=== PATIENT | female | born 1965 | race Caucasian/White ===

== ENCOUNTER 2021-01-28 09:41 | Outpatient (REF) | payer OTHER, SELFPAY ==
[2021-01-28 10:24] LABS: MANUAL DIFF FLAG NO
[2021-01-28 10:43] LABS: Basophils Absolute Auto 0.1 X10*3/uL (0.0-0.2); Basophils Percent Auto 1.2 % (0-2); Eosinophils Absolute Auto 0.2 X10*3/uL (0.0-0.4); Eosinophils Percent Auto 3.9 % (0-4); Hematocrit 38.1 % (37-47); Hemoglobin 12.9 g/dl (12.0-16.0); Imm Gran Abs Auto 0.01 X10*3/uL (0.00-0.03); Imm Gran Pct Auto 0.2 % (0.0-0.4); Lymphocytes Absolute Auto 1.9 X10*3/uL (1.2-4.9); Mean Corpuscular HGB Conc 33.9 g/dl (31.0-35.0); Mean Corpuscular Hemoglobin 30.9 pg (27.0-33.0); Mean Corpuscular Volume 91.4 fL (80-98); Mean Platelet Volume 9.6 fL (9.4-12.3); Monocytes Absolute Auto 0.4 X10*3/uL (0.1-1.2); Monocytes Percent Auto 7.3 % (2-11); Neutrophils Absolute Auto 2.6 X10*3/uL (2.0-8.3); Neutrophils Percent Auto 50.4 % (45-73); Platelet Count 281 X10*3/uL (160-400); Red Blood Count 4.17 X10*6/uL (4.20-5.50); Red Cell Distribution Width 12.4 % (11.0-16.0); White Blood Count 5.2 X10*3/uL (4.8-10.8)
[2021-01-28 11:01] LABS: Glucose Urine UA NEG (NEG); Leukocyte Esterase Urine NEG (NEG); Nitrite Urine NEG (NEG); Urine Blood TRACE (NEG); Urine Ketones NEG (NEG); Urine Protein NEG (NEG-TRACE)
[2021-01-28 11:07] LABS: Appearance Urine CLEAR; Color Urine STRAW
[2021-01-28 11:26] LABS: RBC Urine 0-2 /HPF (0); Squamous Epithelial Cell Urine TRACE /LPF; WBC Urine 0 /HPF (0-4)
[2021-01-28 11:27] LABS: Alanine Aminotransferase 14 U/L (0-31); Albumin Level 4.4 g/dL (3.5-5.0); Alkaline Phosphatase 72 U/L (39-117); Anion Gap 13 (12-20); Aspartate Amino Transferase 19 U/L (5-31); Bilirubin Total 0.5 mg/dL (0.0-1.0); Blood Urea Nitrogen 13 mg/dL (9-16); Calcium 9.5 mg/dL (8.4-10.2); Carbon Dioxide 26 mmol/L (22-29); Chloride 104 mmol/L (96-108); Cholesterol 206 mg/dL; Estimated Glomerular Filt Rate > 60; Glucose Fasting 86 mg/dL (60-99); HDL Cholesterol 56 mg/dL; LDL Cholesterol Calculated 140 mg/dl; Potassium 4.3 mmol/L (3.3-5.1); Sodium 139 mmol/L (135-145); Total Protein 6.6 g/dL (6.5-8.0); Triglycerides 50 mg/dL
[2021-01-28 11:39] LABS: TSH reflex Free T4 1.41 uIU/mL (0.32-4.0)
== END 2021-01-28 09:42 | disposition home or self-care (01) ==
LOC: HO.LNP 09:41
PROVIDERS: PCP Internal Medicine; Visit Provider Internal Medicine
DX: Z00.00 Encounter for general adult medical examination without abnormal findings (principal); R31.1 Benign essential microscopic hematuria; E04.1 Nontoxic single thyroid nodule
CPT/HCPCS: 80053; 80061; 81001; 81003; 84443; 85025

== ENCOUNTER 2022-02-04 11:09 | Outpatient (REF) | payer OTHER, SELFPAY ==
[2022-02-04 11:14] LABS: MANUAL DIFF FLAG NO
[2022-02-04 11:31] LABS: Appearance Urine CLEAR; Color Urine YELLOW; Glucose Urine UA NEG (NEG); Leukocyte Esterase Urine TRACE (NEG); Nitrite Urine NEG (NEG); PH 5.5 (5.0-8.0); Urine Blood NEG (NEG); Urine Ketones NEG (NEG); Urine Protein NEG (NEG-TRACE)
[2022-02-04 11:32] LABS: Basophils Absolute Auto 0.1 X10*3/uL (0.0-0.2); Basophils Percent Auto 1.3 % (0-2); Eosinophils Absolute Auto 0.3 X10*3/uL (0.0-0.4); Eosinophils Percent Auto 4.4 % (0-4); Hematocrit 38.3 % (37.0-47.0); Hemoglobin 12.8 g/dl (12.0-16.0); Imm Gran Abs Auto 0.01 X10*3/uL (0.00-0.03); Imm Gran Pct Auto 0.2 % (0.0-0.4); Lymphocytes Absolute Auto 2.2 X10*3/uL (1.2-4.9); Lymphocytes Percent Auto 35.2 % (20-40); Mean Corpuscular HGB Conc 33.4 g/dl (31.0-35.0); Mean Corpuscular Hemoglobin 30.7 pg (27.0-33.0); Mean Corpuscular Volume 91.8 fL (80.0-98.0); Mean Platelet Volume 9.5 fL (9.4-12.3); Monocytes Absolute Auto 0.5 X10*3/uL (0.1-1.2); Monocytes Percent Auto 7.7 % (2-11); Neutrophils Absolute Auto 3.1 x10*3/uL (2.0-8.3); Neutrophils Percent Auto 51.2 % (45-73); Platelet Count 278 X10*3/uL (160-400); Red Blood Count 4.17 X10*6/uL (4.20-5.50); Red Cell Distribution Width 12.4 % (11.0-16.0); White Blood Count 6.1 X10*3/uL (4.8-10.8)
[2022-02-04 11:40] LABS: Alanine Aminotransferase 11 U/L (0-31); Albumin Level 4.3 g/dL (3.5-5.0); Alkaline Phosphatase 73 U/L (39-117); Anion Gap 12 (12-20); Aspartate Amino Transferase 18 U/L (5-31); Bilirubin Total 0.6 mg/dL (0.0-1.0); Blood Urea Nitrogen 17 mg/dL (9-16); Calcium 9.5 mg/dL (8.4-10.2); Carbon Dioxide 26 mmol/L (22-29); Chloride 104 mmol/L (96-108); Cholesterol 230 mg/dL; Estimated Glomerular Filt Rate > 60; Glucose Fasting 96 mg/dL (60-99); HDL Cholesterol 58 mg/dL; LDL Cholesterol Calculated 162 mg/dl; Potassium 4.3 mmol/L (3.3-5.1); Sodium 138 mmol/L (135-145); Total Protein 6.9 g/dL (6.5-8.0); Triglycerides 53 mg/dL
[2022-02-04 11:59] LABS: RBC Urine 0-2 /HPF (0); WBC Urine 0-2 /HPF (0-4)
[2022-02-04 12:00] LABS: Bacteria Urine TRACE /LPF; Squamous Epithelial Cell Urine TRACE /LPF
[2022-02-04 12:05] LABS: TSH reflex Free T4 1.57 uIU/mL (0.32-4.0)
== END 2022-02-04 11:10 | disposition home or self-care (01) ==
LOC: HO.LNP 11:09
PROVIDERS: Visit Provider Internal Medicine
DX: Z00.00 Encounter for general adult medical examination without abnormal findings (principal); E04.1 Nontoxic single thyroid nodule
CPT/HCPCS: 80053; 80061; 81001; 84443; 85025

== ENCOUNTER 2022-08-12 11:29 | Outpatient (REF) | payer OTHER, SELFPAY ==
[2022-08-12 14:03] LABS: Cholesterol 261 mg/dL; HDL Cholesterol 67 mg/dL; LDL Cholesterol Calculated 179 mg/dl; Triglycerides 78 mg/dL
[2022-08-12 15:53] LABS: Reflex LDLD? No
== END 2022-08-12 11:30 | disposition home or self-care (01) ==
LOC: HO.LNP 11:29
PROVIDERS: Visit Provider Internal Medicine
DX: E78.00 Pure hypercholesterolemia, unspecified (principal)
CPT/HCPCS: 80061

== ENCOUNTER 2023-02-07 11:07 | Outpatient (REF) | payer SELFPAY ==
[2023-02-07 11:10] LABS: MANUAL DIFF FLAG NO
[2023-02-07 11:25] LABS: Basophils Absolute Auto 0.1 X10*3/uL (0.0-0.2); Basophils Percent Auto 1.3 % (0-2); Eosinophils Absolute Auto 0.3 X10*3/uL (0.0-0.4); Eosinophils Percent Auto 3.9 % (0-4); Hematocrit 38.9 % (37.0-47.0); Imm Gran Abs Auto 0.01 X10*3/uL (0.00-0.03); Imm Gran Pct Auto 0.1 % (0.0-0.4); Lymphocytes Absolute Auto 2.1 X10*3/uL (1.2-4.9); Lymphocytes Percent Auto 31.4 % (20-40); Mean Corpuscular HGB Conc 33.4 g/dl (31.0-35.0); Mean Corpuscular Volume 92.8 fL (80.0-98.0); Mean Platelet Volume 9.9 fL (9.4-12.3); Monocytes Absolute Auto 0.5 X10*3/uL (0.1-1.2); Monocytes Percent Auto 7.6 % (2-11); Neutrophils Absolute Auto 3.7 x10*3/uL (2.0-8.3); Neutrophils Percent Auto 55.7 % (45-73); Platelet Count 267 X10*3/uL (160-400); Red Blood Count 4.19 X10*6/uL (4.20-5.50); Red Cell Distribution Width 12.4 % (11.0-16.0); White Blood Count 6.7 X10*3/uL (4.8-10.8)
[2023-02-07 11:32] LABS: Appearance Urine Clear; Color Urine Yellow; Glucose Urine UA Negative (Negative); Leukocyte Esterase Urine Small (1+) (Negative); Nitrite Urine Negative (Negative); Specific Gravity - Urine 1.025 (1.005-1.025); UMIC TRIGGER UACC YES; Urine Blood Trace (Negative); Urine Ketones Negative (Negative); Urine Protein Negative (Neg-Trace)
[2023-02-07 11:41] LABS: Alanine Aminotransferase 11 U/L (0-31); Albumin Level 4.3 g/dL (3.5-5.0); Alkaline Phosphatase 60 U/L (39-117); Anion Gap 12 (12-20); Aspartate Amino Transferase 17 U/L (5-31); Bilirubin Total 0.7 mg/dL (0.0-1.0); Blood Urea Nitrogen 17 mg/dL (9-16); Calcium 9.5 mg/dL (8.4-10.2); Carbon Dioxide 28 mmol/L (22-29); Chloride 106 mmol/L (96-108); Cholesterol 218 mg/dL; Estimated Glomerular Filt Rate > 60; Glucose Fasting 97 mg/dL (60-99); HDL Cholesterol 56 mg/dL; LDL Cholesterol Calculated 150 mg/dl; Potassium 4.3 mmol/L (3.3-5.1); Sodium 142 mmol/L (135-145); Total Protein 6.8 g/dL (6.5-8.0); Triglycerides 64 mg/dL
[2023-02-07 11:42] LABS: Bacteria Urine None Seen (None Seen); Hyaline Casts Urine 0-2 /LPF (0-2); Squamous Epithelial Cell Urine 0-2 /HPF (0-2); UACC Culture Trigger YES; WBC Urine 0-5 /HPF (0-5)
== END 2023-02-07 11:08 | disposition home or self-care (01) ==
LOC: HO.LNP 11:07
PROVIDERS: Visit Provider Internal Medicine
DX: Z00.00 Encounter for general adult medical examination without abnormal findings (principal); E04.1 Nontoxic single thyroid nodule; E78.00 Pure hypercholesterolemia, unspecified; R82.90 Unspecified abnormal findings in urine
CPT/HCPCS: 80053; 80061; 81001; 84443; 85025; 87086

== ENCOUNTER 2023-02-13 11:10 | Outpatient (REF) | payer OTHER, SELFPAY ==
[2023-02-13 11:47] LABS: Appearance Urine Clear; Color Urine Yellow; Glucose Urine UA Negative (Negative); Leukocyte Esterase Urine Negative (Negative); Nitrite Urine Negative (Negative); PH 5.5 (5.0-9.0); UMIC TRIGGER UA YES; Urine Blood Trace (Negative); Urine Ketones Negative (Negative); Urine Protein Negative (Neg-Trace)
[2023-02-13 11:52] LABS: Bacteria Urine None Seen (None Seen); Hyaline Casts Urine 0-2 /LPF (0-2); RBC Urine 0-2 /HPF (0-2); Squamous Epithelial Cell Urine 0-2 /HPF (0-2); WBC Urine 0-5 /HPF (0-5)
== END 2023-02-13 11:11 | disposition home or self-care (01) ==
LOC: HO.LNP 11:10
PROVIDERS: Visit Provider Internal Medicine
DX: R31.9 Hematuria, unspecified (principal)
CPT/HCPCS: 81001

== ENCOUNTER 2025-02-28 10:17 | Outpatient (REF) | payer OTHER, SELFPAY ==
--- OUTSIDE RECORDS SUMMARY | 2024-10-21 06:51 | XMS_ITS ---
Author Organization Nishant Vance MD Address [address] [place] [phone] Care Team Providers Care Coater Slate Name Role Phone Rajiv Nishant Primary Care Provider REASON FOR VISIT New Referral Request Encounters Encounter Location Date Provider Diagnosis Nishant Vance MD [address] [place] [phone] 10/21/2024 Nishant Vance Plan Of Treatment Next Appt Details Provider Name:Nishant Schmitt ier, 03/07/2025 02:30:00 PM, [address], [address] [place] [address], [phone], Progress Notes * Marcelle OLSON ADOB:1965 (58 yo F)Acc No.[id number]:10/21/2024 Patient: Himanshu SONAM Marcelle Conway :1965 A ge:58 Y S ex:Female Address:[address] [place] [address] * true * Date: Generated for Irma ocampo/Becca/Tessaitting on: 0 02/28/2025 10:34 AM EDT
[2025-02-28 10:20] LABS: MANUAL DIFF FLAG NO
[2025-02-28 10:33] LABS: Basophils Absolute Auto 0.1 X10*3/uL (0.0-0.2); Eosinophils Absolute Auto 0.2 X10*3/uL (0.0-0.4); Eosinophils Percent Auto 3.8 % (0-4); Hematocrit 37.7 % (37.0-47.0); Hemoglobin 13.3 g/dl (12.0-16.0); Imm Gran Abs Auto 0.01 X10*3/uL (0.00-0.03); Imm Gran Pct Auto 0.2 % (0.0-0.4); Lymphocytes Percent Auto 34.1 % (20-40); Mean Corpuscular HGB Conc 35.3 g/dl (31.0-35.0); Mean Corpuscular Hemoglobin 31.8 pg (27.0-33.0); Mean Corpuscular Volume 90.2 fL (80.0-98.0); Mean Platelet Volume 9.2 fL (9.4-12.3); Monocytes Absolute Auto 0.4 X10*3/uL (0.1-1.2); Monocytes Percent Auto 7.5 % (2-11); Neutrophils Absolute Auto 3.1 x10*3/uL (2.0-8.3); Neutrophils Percent Auto 53.4 % (45-73); Platelet Count 286 X10*3/uL (160-400); Red Blood Count 4.18 X10*6/uL (4.20-5.50); Red Cell Distribution Width 12.6 % (11.0-16.0); White Blood Count 5.7 X10*3/uL (4.8-10.8)
[2025-02-28 10:34] LABS: Appearance Urine Clear; Color Urine Yellow; Glucose Urine UA Negative (Negative); Leukocyte Esterase Urine Negative (Negative); Nitrite Urine Negative (Negative); PH 5.5 (5.0-9.0); Specific Gravity - Urine 1.015 (1.005-1.025); Urine Blood Negative (Negative); Urine Ketones Negative (Negative); Urine Protein Negative (Neg-Trace)
[2025-02-28 10:42] LABS: Bacteria Urine None Seen (None Seen); Hyaline Casts Urine 0-2 /LPF (0-2); RBC Urine 0-2 /HPF (0-2); WBC Urine 0-5 /HPF (0-5)
[2025-02-28 11:10] LABS: Alanine Aminotransferase 15 U/L (0-31); Albumin Level 4.3 g/dL (3.5-5.0); Alkaline Phosphatase 60 U/L (39-117); Anion Gap 11 (12-20); Aspartate Amino Transferase 29 U/L (5-31); Bilirubin Total 0.5 mg/dL (0.0-1.0); Blood Urea Nitrogen 13 mg/dL (9-16); Carbon Dioxide 27 mmol/L (22-29); Chloride 105 mmol/L (96-108); Cholesterol 262 mg/dL (<200); Estimated Glomerular Filt Rate > 60; Glucose Fasting 90 mg/dL (60-99); HDL Cholesterol 60 mg/dL (>40); LDL Cholesterol Calculated 180 mg/dL (<100); Potassium 4.3 mmol/L (3.3-5.1); Sodium 139 mmol/L (135-145); Total Protein 6.8 g/dL (6.5-8.0); Triglycerides 111 mg/dL (<150)
== END 2025-02-28 10:18 | disposition home or self-care (01) ==
LOC: HO.LNP 10:17
PROVIDERS: Visit Provider Internal Medicine
DX: E78.00 Pure hypercholesterolemia, unspecified (principal); D72.820 Lymphocytosis (symptomatic); Z00.00 Encounter for general adult medical examination without abnormal findings
CPT/HCPCS: 80053; 80061; 81001; 85025

== ENCOUNTER 2025-06-09 11:15 | Outpatient (REF) | payer OTHER, SELFPAY ==
--- OUTSIDE RECORDS SUMMARY | 2024-10-21 06:51 | XMS_ITS ---
Author Organization Nishant Vance MD Address [address] [place] [phone] Care Team Providers Care Can Tester Name Role Phone RajivIsisn Primary Care Provider REASON FOR VISIT New Referral Request Encounters Encounter Location Date Provider Diagnosis Nishant Vance MD [address] [place] [phone] 10/21/2024 Nishant Vance Plan Of Treatment Next Appt Details Provider Name:Nishant del cid, 03/05/2026 07:30:00 AM, [address] [place] [address], [address] [place] [address], [phone], Provider Name:Nishant del cid, 03/12/2026 08:30:00 AM, [address] [place] [address], [address] [place] [address], [phone], Progress Notes * Marcelle OLSON ADOB:1965 (58 yo F)Acc No.[id number]:10/21/2024 Patient: Marcelle HINTON :1965 A ge:58 Y S ex:Female Address: [place] [address] * true * Date: Generated for Irma ocampo/Becca/Jacielsmitting on: 0 06/09/2025 12:45 PM EDT
--- OUTSIDE RECORDS SUMMARY | 2024-10-21 06:54 | XMS_ITS ---
Author Organization Nishant Vance MD Address [address] [place] [phone] Care Team Providers Care Medical Safety Director Name Role Phone RajivIsisn Primary Care Provider REASON FOR VISIT New Referral Request Encounters Encounter Location Date Provider Diagnosis Nishant Vance MD [address] [facility] [address] [place] [phone] 10/21/2024 Nishant Vance Plan Of Treatment Next Appt Details Provider Name:Nishant del cid, 03/05/2026 07:30:00 AM, [address] [place] [address], [address] [place] [address], [phone], Provider Name:Nishant del cid, 03/12/2026 08:30:00 AM, [address] [place] [address], [address] [place] [address], [phone], Progress Notes * Marcelle OLSON ADOB:1965 (58 yo F)Acc No.[id number]:10/21/2024 Patient: Marcelle HINTON :1965 A ge:58 Y S ex:Female Address: [place] [address] * true * Date: Generated for Irma ocampo/Becca/Jacielsmitting on: 0 06/09/2025 12:46 PM EDT
--- OUTSIDE RECORDS SUMMARY | 2025-02-28 03:45 | XMS_ITS ---
Author Organization Nishant Vance MD Address [address] [place] [phone] Care Team Providers Care Vp Cardiovascular Service Line Name Role Phone Rajiv Nishant Primary Care Provider Results Component Value Reference Range Notes Complete Blood Count Auto Di ff Reviewed date:02/28/2025 12:08:26 PM Interpretation: Performing Lab:[facility], [address] [place] [phone] Notes/Report: White Blood Count 5.7 4.8-10.8 X10*3/uL Red Blood Count 4.18 4.20-5.50 X10*6/uL Hemoglobin 13.3 12.0-16.0 g/dl Hematocrit 37.7 37.0-47.0 % Mean Corpuscular Volume 90.2 80.0-98.0 fL Mean Corpuscular Hemoglobin 31.8 27.0-33.0 pg Mean Corpuscular HGB Conc 35.3 31.0-35.0 g/dl Red Cell Distribution Width 12.6 11.0-16.0 % Platelet Count 286 160-400 X10*3/uL Mean Platelet Volume 9.2 9.4-12.3 fL Neutrophils Percent Auto 53.4 45-73 % Imm Gran Pct Auto 0.2 0.0-0.4 % Lymphocytes Percent Auto 34.1 20-40 % Monocytes Percent Auto 7.5 2-11 % Eosinophils Percent Auto 3.8 0-4 % Basophils Percent Auto 1.0 0-2 % NRBC Pct Auto 0.0 0.0-0.2 /100WBC Neutrophils Absolute Auto 3.1 2.0-8.3 x10*3/u L Imm Gran Abs Auto 0.01 0.00-0.03 X10*3/uL Lymphocytes Absolute Auto 2.0 1.2-4.9 X10*3/u L Monocytes Absolute Auto 0.4 0.1-1.2 X10*3/uL Eosinophils Absolute Auto 0.2 0.0-0.4 X10*3/u L Basophils Absolute Auto 0.1 0.0-0.2 X10*3/uL NRBC Abs Auto 0.000 0.0-0.012 X10*3/uL Comprehensive [place]. Panel Fa st Reviewed date:03/02/2025 07:48:52 PM Interpretation: Performing Lab:[facility], [address] [place] [phone] Notes/Report: Sodium 139 135-145 mmol/L Potassium 4.3 3.3-5.1 mmol/L Chloride 105 96-108 mmol/L Carbon Dioxide 27 22-29 mmol/L Anion Gap 11 12-20 Blood Urea Nitrogen 13 9-16 mg/dL Creatinine 0.72 0.5-1.4 mg/dL Estimated Glomerular Filt Rate > 60 Chronic Kidney Disease: Estimated GFR < 60 mL/min/1.73m2 Severe Kidney Disease: Estimated GFR < 15 mL/min/1.73m2 Glucose Fasting 90 60-99 mg/dL Calcium 9.0 8.4-10.2 mg/dL Bilirubin Total 0.5 0.0-1.0 mg/dL Aspartate Amino Transferase 29 5-31 U/L Alanine Aminotransferase 15 0-31 U/L Total Protein 6.8 6.5-8.0 g/dL Albumin Level 4.3 3.5-5.0 g/dL Alkaline Phosphatase 60 39-117 U/L Lipid Panel Reviewed date:02/28/2025 12:08:02 PM Interpretation: Performing Lab:[facility], [address] [place] [phone] Notes/Report: Triglycerides 111 <150 mg/dL Desirable Triglyceride: less than 150 mg/dL Borderline High Triglyceride 150-199 mg/dL High Triglyceride: 200-499 mg/dL Very High Triglyceride: greater than or equal to 5OO mg/dL Cholesterol 262 <200 mg/dL Desirable Cholesterol: less than 200 mg/dL Borderline High Cholesterol: 200-239 mg/dL High Cholesterol: greater than 239 mg/dL LDL Cholesterol Calculated 180 <100 mg/dL Desirable LDL: less than 100 mg/dL Near Optimal/Above Optimal LDL: 110-129 mg/dL Borderline High LDL: 130-159 mg/dL High LDL: 160-189 mg/dL Very High LDL: greater than or equal to 190 mg/dL HDL Cholesterol 60 >40 mg/dL Desirable HDL: greater than 40 mg/dL Note: This HDL assay may give artificially low results in patients with liver disease. UA ClnCatch+Micro w/rflx Cul t Reviewed date:02/28/2025 12:09:43 PM Interpretation: Performing Lab:[facility], [address] [place] [phone] Notes/Report: Urine, Clean Catch Color Urine Yellow Appearance Urine Clear PH 5.5 5.0-9.0 Glucose Urine UA Negative Negative mg/dL Urine Blood Negative Negative Specific [place] - Urine 1.015 1.005-1.025 Urine Protein Negative Neg-Trace mg/dL Urine Ketones Negative Negative mg/dL Nitrite Urine Negative Negative Leukocyte Esterase Urine Negative Negative RBC Urine 0-2 0-2 /HPF WBC Urine 0-5 0-5 /HPF Squamous Epithelial Cell Urine 3-5 0-2 /HPF Bacteria Urine None Seen None Seen Hyaline Casts Urine 0-2 0-2 /LPF REASON FOR VISIT FASTING LABS Encounters Encounter Location Date Provider Diagnosis Nishant Vance MD [address] [place], [place] [phone] 02/28/2025 Nishant Vance Blood tests for rout ine general physical examination Z00.00 ; Hypercholesterolemia E78.00 and Lymphocytosis D72.820 Assessments Encounter Date Diagnosis (ICD Code) Assessment Notes Treatment Notes Treatment Clinical Notes Section Notes 02/28/2025 Blood tests for rout ine general physical examination (ICD-10 - Z00.00) 02/28/2025 Hypercholesterolemia (ICD-10 - E78.00) 02/28/2025 Lymphocytosis (ICD-1 0 - D72.820) Plan Of Treatment Next Appt Details Provider Name:Nishant Schmitt ier, 03/05/2026 07:30:00 AM, [address], [address], [place], [place], [phone], Provider Name:Nishant Schmitt ier, 03/12/2026 08:30:00 AM, [address], [address], [place], [place], [phone], Progress Notes * OLSONMarcelle Loiuse ADOB:1965 (59 yo F)Acc No.[id number]:02/28/2025 Progress Note Patient: Marcelle HINTON Provider: Navid Vance MD :1965 A ge:59 Y S ex:Female Date:02/28/2025 Address:[address] [place] [address] [place] [id number] Subjective: * Chief Complaints: * 1 . FASTING LABS. * Medical History: Objective: * Vitals: Assessment: * Assessment: 1. B lood tests for routine general physical examination - Z00.00 (Primary) 2 .?Hypercholesterolemia - E78.00 3 . L ymphocytosis - D72.820 ? Plan: * Treatment: 2. H ypercholesterolemia L AB: Complete Blood Count Auto Diff (Collection Date & Time - 02/28/2025 07:45 AM) L AB: Comprehensive [place]. Panel Fast (Collection Date & Time - 02/28/2025 07:45 AM) L AB: Lipid Panel (Collection Date & Time - 02/28/2025 07:45 AM) L AB: UA ClnCatch+Micro w/rflx Cult (Collection Date & Time - 02/28/2025 07:45 AM) 3. L ymphocytosis L AB: Complete Blood Count Auto Diff (Collection Date & Time - 02/28/2025 07:45 AM) L AB: Comprehensive [place]. Panel Fast (Collection Date & Time - 02/28/2025 07:45 AM) L AB: Lipid Panel (Collection Date & Time - 02/28/2025 07:45 AM) L AB: UA ClnCatch+Micro w/rflx Cult (Collection Date & Time - 02/28/2025 07:45 AM) * Procedure Codes: 3 6415 VENIPUNCT, ROUTINE* * * The named appointment provid er may or may not be the originator of this progress note, and it is not deemed complete until electronically signed by the appointment provider. Sign off status: Pending * Provider: Navid Vance MD Date: 0 02/28/2025 Generated for Irma ocampo/Becca/Domi on: 0 06/09/2025 12:46 PM EDT
--- OUTSIDE RECORDS SUMMARY | 2025-03-07 10:30 | XMS_ITS ---
Author Organization Nishant Vance MD Address [address] [place] [phone] Care Team Providers Care Meter Readers Supervisor Name Role Phone Nishant Vance Primary Care Provider [phone] Allergies No Known Allergies REASON FOR VISIT ANNUAL EXAM Medications Medication SIG (Take, Route, Frequency, Duration) Notes Start Date End Date Status Finacea 15 % 1 application Externally Twice a day for 30 days 10/27/2020 Not-Taking Finacea 15 % 1 application Externally Twice a day for 90 days 02/16/2024 Active Clobetasol Propionate 0.05 % 1 application Externally Twice a day for 90 days 04/05/2021 Active SUMAtriptan Succinate 100 MG TAKE 1 TABLET BY MOUTH EVERY DAY for 10 Active LORazepam 0.5 MG TAKE 1 TABLET BY JACQUELYN TH EVERY DAY AT BEDTIME NEEDED for 30 12/02/2022 Not-Taking Valtrex 1 GM 1 tablet Orally 3 ti mes a day for 7 days 02/01/2019 Not-Taking Atorvastatin Calcium 20 MG 1 tablet Orally Once a day for 30 days 03/07/2025 Active Social History Tobacco Use: Social History Observation Description Date Details (start date - stop date) Never Smoker NA - NA Tobacco Use/Smoking Question Answer Notes Patient is a nonsmoker Additional Findings: Tobacco Non-User Cu rrent non-smoker, currently using no form of tobacco Alcohol Screen Question Answer Notes Did you have a drink contain ing alcohol in the past year? Yes How often did you have a dri nk containing alcohol in the past year? Monthly or less (1 point) How many drinks did you have on a typical day when you were drinking in the past year? 1 or 2 drinks (0 point) How often did you have 6 or more drinks on one occasion in the past year? Never (0 point) Points 1 Interpretation Negative Vital Signs Blood pressure systolic 92 mm Hg 03/07/20 25 Blood pressure diastolic 60 mm Hg 025 Height 65 in 03/07/2025 Weight 131 lbs 03/07/2025 BMI 21.8 kg/m2 03/07/2025 weight is down 2 pounds [facility] 02-16-24 Encounters Encounter Location Date Provider Diagnosis Nishant Vance MD [address] [place], [place] [phone] 03/07/2025 Nishant Vance Annual physical exam Z00.00 ; Hypercholesterolemia E78.00 and Osteoporosis without current pathological fracture, unspecified osteoporosis type M81.0 Assessments Encounter Date Diagnosis (ICD Code) Assessment Notes Treatment Notes Treatment Clinical Notes Section Notes 03/07/2025 Annual physical exam (ICD-10 - Z00.00) 03/07/2025 Hypercholesterolemia (ICD-10 - E78.00) 03/07/2025 Osteoporosis without current pathological fracture, unspecified osteoporosis type (ICD-10 - M81.0) is going to see an furniture assembler Plan Of Treatment Medication Medication Name Sig Start Date Stop Date Notes Atorvastatin Calcium 20 MG 1 tablet Oral ly Once a day for 30 days 03/07/2025 Treatment Notes Assessment Notes Osteoporosis without current pathological fracture, unspecified osteoporosis type is going to see an furniture assembler Pending Test Test Name Order Date Liver Panel 03/07/2025 Lipid Panel 03/07/2025 Next Appt Details Provider Name:Nishant del cid, 03/05/2026 07:30:00 AM, [address], [address], [place], [place], [phone], Provider Name:Inshant Steve Schmitt ier, 03/12/2026 08:30:00 AM, [address], [address], [place], [phone], Progress Notes * Marcelle OLSON ADOB:1965 (59 yo F)Acc No.[id number]:03/07/2025 Progress Notes Patient: Marcelle HINTON Provider: Navid Vance MD :1965 A ge:59 Y S ex:Female Date:03/07/2025 [id number] Subjective: * Chief Complaints: * 1 . ANNUAL EXAM. * HPI: D epression Screening: PHQ-9 L ittle interest or pleasure in doing things N ot at all, F eeling down, depressed, or hopeless N ot at all, T rouble falling or staying asleep, or sleeping too much N ot at all, F eeling tired or having little energy N ot at all, P oor appetite or overeating N ot at all, F eeling bad about yourself or that you are a failure, or have let yourself or your family down N ot at all, T rouble concentrating on things, such as reading the newspaper or watching television N ot at all, M oving or speaking so slowly that other people could have noticed; or the opposite, being so fidgety or restless that you have been moving around a lot more than usual N ot at all, T houghts that you would be better off or of hurting yourself in some way N ot at all, T otal Score 0 . I nterpretation and Intervention D epression Screening Findings N egative, F ollow-Up for Depression : review of PHQ-9 found negative result, no follow-up needed. C ommunication Needs: Communication Needs D oes the patient have a hearing impairment N o, D oes the patient have a vision impairment? Y es, I f yes, what is the vision impairment? G lasses, D oes the patient have a cognition impairment? N o. F all Risk: History H ave you had any falls with injury in the past year? N o, H ave you had two or more falls in the past year? N o. S JACQUI Questions: SDOH Questions I n the past year have you been worried about losing housing? N o, I n the past year have you or any family members you live with been unable to get any of the following when it was really needed? Check all that apply: N one. S ymptom(s): patient is a 59 yo female here for annual visit with review of recent labs and follow up of chronic issues. * ROS: G eneral/Constitutional: Change in appetite d enies. C hills d enies. F ever d enies. O phthalmologic: Blurred vision d enies. D ischarge d enies. P ain d enies. E NT: Decreased hearing d enies. S ore throat d enies.?Swollen glands d enies. E ndocrine: Cold intolerance d enies. E xcessive thirst d enies. H eat intolerance d enies. W eight loss d enies. R espiratory: Cough d enies. S hortness of breath at rest d enies. S hortness of breath with exertion d enies. W heezing d enies. C ardiovascular: Chest pain at rest d enies. C hest pain with exertion?denies. I rregular heartbeat d enies. S hortness of breath d enies. ? G astrointestinal: Abdominal pain d enies. C hange in bowel habits d enies. D iarrhea d enies. N ausea d enies. R ectal bleeding d enies. V omiting d enies . G enitourinary: Blood in urine d enies. D ifficulty urinating d enies. F requent urination d enies. U rinary incontinence D enies. M usculoskeletal: Painful joints d enies. W eakness d enies. ? S kin: Dry skin d enies. I tching d enies. D enies?Mole(s), changes in moles, new moles or any lesions of concern. D enies P hotosensitivity. R randee d enies. N eurologic: Dizziness d enies. F ainting d enies. H eadache?denies. * Medical History: H ad partial hysterectomy - left cervix. and ovaries, Colonoscopy 06/26/[address] Shruthi Tanner @ [facility] - repeat 5 years, Abnormal mammogram of right breast. * Surgical History: l aparoscopic supracervical hysterectomy 02/2012. * Family History: F ather: alive 82 yrs, diagnosed with Hypertension. M other: alive 83 yrs. 1 brother(s) , 1 sister(s) - healthy. 1 son(s) , 1 daughter(s) - healthy. . Mother healthy, Denies mental health/substance abuse family history, Denies mental health/substance abuse family history, Denies mental health/substance abuse family history. * Social History: T obacco Use: T obacco Use/Smoking P atient is a n onsmoker, A dditional Findings: Tobacco Non-User C urrent non-smoker, currently using no form of tobacco. D rugs/Alcohol: A lcohol Screen D id you have a drink containing alcohol in the past year? Y es, H ow often did you have a drink containing alcohol in the past year? M onthly or less (1 point), H ow many drinks did you have on a typical day when you were drinking in the past year? 1 or 2 drinks (0 point), H ow often did you have 6 or more drinks on one occasion in the past year? N ever (0 point), P oints 1 , I nterpretation N egative. M iscellaneous: C affeine: yes, frequency:, 1-2 cups per day. Children: yes. Community involvements: no. Exercise: yes, 2-3 times a week spinning and wlking 3 miles at atime. Housing: owning. Living with: spouse and kids. Marital status: . Occupation: works part-time. Pets: none. Travel outside of the [place]: yes, [place]. * Medications: T aking Finacea 15 % Gel 1 application Externally Twice a day , Taking Clobetasol Propionate 0.05 % Cream 1 application Externally Twice a day , Taking SUMAtriptan Succinate 100 MG Tablet TAKE 1 TABLET BY MOUTH EVERY DAY , Not-Taking/PRN Finacea 15 % Foam 1 application Externally Twice a day , Not-Taking/PRN LORazepam 0.5 MG Tablet TAKE 1 TABLET BY MOUTH EVERY DAY AT BEDTIME NEEDED , Not-Taking/PRN Valtrex 1 GM Tablet 1 tablet Orally 3 times a day , Medication List reviewed and reconciled with the patient * Allergies: N .K.D.A. Objective: * Vitals: H t: 65, Wt: 131, BMI:21.8, BP:92/60, Wt-k.42. weight is down 2 pounds since 02-16-24. * P ast Orders: L ab:Complete Blood Count Auto Diff (Order Date - 02/28/2025) (Collection Date & Time - 02/28/2025 07:45 AM) Value Reference Range White Blood Count 5.7 4.8-10.8 - X10*3/uL Red Blood Count 4.18 L 4.20-5.50 - X10*6/uL Hemoglobin 13.3 12.0-16.0 - g/dl Hematocrit 37.7 37.0-47.0 - % Mean Corpuscular Volume 90.2 80.0-98.0 - fL Mean Corpuscular Hemoglobin 31.8 27.0-33.0 - pg Mean Corpuscular HGB Conc 35.3 H 31.0-35.0 - g/ dl Red Cell Distribution Width 12.6 11.0-16.0 - % Platelet Count 286 160-400 - X10*3/uL Mean Platelet Volume 9.2 L 9.4-12.3 - fL Neutrophils Percent Auto 53.4 45-73 - % Imm Gran Pct Auto 0.2 0.0-0.4 - % Lymphocytes Percent Auto 34.1 20-40 - % Monocytes Percent Auto 7.5 2-11 - % Eosinophils Percent Auto 3.8 0-4 - % Basophils Percent Auto 1.0 0-2 - % NRBC Pct Auto 0.0 0.0-0.2 - /100WBC Neutrophils Absolute Auto 3.1 2.0-8.3 - x10* 3/uL Imm Gran Abs Auto 0.01 0.00-0.03 - X10*3/uL Lymphocytes Absolute Auto 2.0 1.2-4.9 - X10* 3/uL Monocytes Absolute Auto 0.4 0.1-1.2 - X10*3/ uL Eosinophils Absolute Auto 0.2 0.0-0.4 - X10* 3/uL Basophils Absolute Auto 0.1 0.0-0.2 - X10*3/ uL NRBC Abs Auto 0.000 0.0-0.012 - X10*3/uL L ab:Comprehensive [place]. Panel Fast (Order Date - 02/28/2025) (Collection Date & Time - 02/28/2025 07:45 AM) Value Reference Range Sodium 139 135-145 - mmol/L Bilirubin Total 0.5 0.0-1.0 - mg/dL Aspartate Amino Transferase 29 5-31 - U/L Alanine Aminotransferase 15 0-31 - U/L Total Protein 6.8 6.5-8.0 - g/dL Albumin Level 4.3 3.5-5.0 - g/dL Alkaline Phosphatase 60 39-117 - U/L Potassium 4.3 3.3-5.1 - mmol/L Chloride 105 96-108 - mmol/L Carbon Dioxide 27 22-29 - mmol/L Anion Gap 11 L 12-20 - Blood Urea Nitrogen 13 9-16 - mg/dL Creatinine 0.72 0.5-1.4 - mg/dL Estimated Glomerular Filt Rate > 60 - Glucose Fasting 90 60-99 - mg/dL Calcium 9.0 8.4-10.2 - mg/dL L ab:Lipid Panel (Order Date - 02/28/2025) (Collection Date & Time - 02/28/2025 07:45 AM) Value Reference Range Triglycerides 111 <150 - mg/dL Cholesterol 262 H <200 - mg/dL LDL Cholesterol Calculated 180 H <100 - mg/dL HDL Cholesterol 60 >40 - mg/dL L ab:UA ClnCatch+Micro w/rflx Cult (Order Date - 02/28/2025) (Collection Date & Time - 02/28/2025 07:45 AM) Value Reference Range Color Urine Yellow - Appearance Urine Clear - PH 5.5 5.0-9.0 - Glucose Urine UA Negative Negative - mg/dL Urine Blood Negative Negative - Specific [place] - Urine 1.015 1.005-1.025 - Urine Protein Negative Neg-Trace - mg/dL Urine Ketones Negative Negative - mg/dL Nitrite Urine Negative Negative - Leukocyte Esterase Urine Negative Negative - RBC Urine 0-2 0-2 - /HPF WBC Urine 0-5 0-5 - /HPF Squamous Epithelial Cell Urine 3-5 0-2 - /HP F Bacteria Urine None Seen None Seen - Hyaline Casts Urine 0-2 0-2 - /LPF * Examination: G eneral Examination: GENERAL APPEARANCE: w ell developed, well nourished, in no acute distress. HEAD: n ormocephalic, atraumatic. EYES: p upils equal, round, reactive to light and accommodation, sclera non-icteric. EARS: n ormal. ORAL CAVITY: m ucosa moist. THROAT: c lear. NECK/THYROID: n yuri supple, full range of motion, no cervical lymphadenopathy, no bruits. SKIN: w arm and dry, no suspicious lesions. HEART: r egular rate and rhythm, S1, S2 normal, no murmurs.? LUNGS: c lear to auscultation bilaterally. BREASTS: d one by pet care worker. ABDOMEN: s oft, nontender, nondistended, bowel sounds present, normal, no organomegaly , no masses palpable. RECTAL EXAM: d one by pet care worker. FEMALE GENITOURINARY: d one by pet care worker. EXTREMITIES: n o clubbing, cyanosis, or edema. NEUROLOGIC: n onfocal, motor strength normal upper and lower extremities, sensory exam intact. Assessment: * Assessment: 1. A nnual physical exam - Z00.00 (Primary) 2 . H ypercholesterolemia - E78.00 3 . O steoporosis without current pathological fracture, unspecified osteoporosis type - M81.0 Plan: * Treatment: 2. H ypercholesterolemia Start Atorvastatin Calcium Tablet, 20 MG, 1 tablet, Orally, Once a day, 30 days, 30, Refills 5.? L AB: Liver Panel (Ordered for 06/07/2025) L AB: Lipid Panel (Ordered for 06/07/2025) 3. O steoporosis without current pathological fracture, unspecified osteoporosis type Notes: is going to see an furniture assembler * * The named appointment provid er may or may not be the originator of this progress note, and it is not deemed complete until electronically signed by the appointment provider. Sign off status: Pending * Provider: Navid Vance MD Date: 0 03/07/2025 Generated for Irma ocampo/Becca/Tessaitting on: 0 06/09/2025 12:45 PM EDT History and Physical Notes * HPI (History of Present Illness) Category Sub-Category Detail Notes Category Not es Symptom(s) patient is a 59 yo female here for annual visit with review of recent labs and follow up of chronic issues Depression Screening PHQ-9 Little inte rest or pleasure in doing things: Not at all Feeling down, depressed, or hopeless: No t at all Trouble falling or staying asleep, or sl eeping too much: Not at all Feeling tired or having little energy: N ot at all Poor appetite or overeating: Not at all Feeling bad about yourself o r that you are a failure, or have let yourself or your family down: Not at all Trouble concentrating on thi ngs, such as reading the newspaper or watching television: Not at all Moving or speaking so slowly that other people could have noticed; or the opposite, being so fidgety or restless that you have been moving around a lot more than usual: Not at all Thoughts that you would be b eitan off or of hurting yourself in some way: Not at all Total Score: 0 Interpretation and Intervention Depression Christy best Findings: Negative Follow-Up for Depression: : review of PH Q-9 found negative result, no follow-up needed SDOH Questions SDOH Questions In the past year have you been worried about losing housing?: No In the past year have you or any family members you live with been unable to get any of the following when it was really needed? Check all that apply:: None Fall Risk History Have you had any falls with injury i n the past year?: No Have you had two or more falls in the year?: No Communication Needs Communication Needs Does the patient have a hearing impairment: No Does the patient have a vision impairmen t?: Yes If yes, what is the vision impairment?: Glasses Does the patient have a cognition impair ment?: No Examination Category Sub-Category Detail Notes Category Not es General Examination GENERAL APPEARANCE: well dev eloped, well nourished, in no acute distress HEAD: normocephalic, atrau matic EYES: pupils equal, round, reactive to light and accommodation, sclera non-icteric EARS: normal THROAT: clear NECK/THYROID: neck supple, full ra nge of motion, no cervical lymphadenopathy, no bruits HEART: regular rate and rhy thm, S1, S2 normal, no murmurs LUNGS: clear to auscultatio n bilaterally ABDOMEN: soft, nontender, non distended, bowel sounds present, normal, no organomegaly , no masses palpable NEUROLOGIC: nonfocal, motor stre ngth normal upper and lower extremities, sensory exam intact SKIN: warm and dry, no samra picious lesions EXTREMITIES: no clubbing, cyanosi s, or edema BREASTS: done by pet care worker RECTAL EXAM: done by pet care worker FEMALE GENITOURINARY: done by pet care worker ORAL CAVITY: mucosa moist
--- OUTSIDE RECORDS SUMMARY | 2025-06-09 03:15 | XMS_ITS ---
Author Organization Nishant Vance MD Address [address] [place] [phone] Care Team Providers Care Conference Services Coordinator Name Role Phone Rajiv Nishant Primary Care Provider REASON FOR VISIT FASTING LIPID , LIVER PANEL Immunizations Vaccine Route Administration Date Status Comme nts Fluarix Quadrivalent - 150 IM Intramuscular 06/09/2025 Adm inistered Encounters Encounter Location Date Provider Diagnosis Nishant Vance MD [address] [place] [phone] 06/09/2025 Nishant Vance Hypercholesterolemia E78.00 ; Annual physical exam Z00.00 and Encounter for administration of vaccine Z23 Assessments Encounter Date Diagnosis (ICD Code) Assessment Notes Treatment Notes Treatment Clinical Notes Section Notes 06/09/2025 Hypercholesterolemia (ICD-10 - E78.00) 06/09/2025 Annual physical exam (ICD-10 - Z00.00) 06/09/2025 Encounter for administration of vaccine (ICD-10 - Z23) Plan Of Treatment Pending Test Test Name Order Date Liver Panel 06/09/2025 Lipid Panel 06/09/2025 Next Appt Details Provider Name:Nishant Schmitt ier, 03/05/2026 07:30:00 AM, [address], [address], [place], [phone], Provider Name:Nishant Schmitt ier, 03/12/2026 08:30:00 AM, [address], [address], [place], [place], [phone], Progress Notes * Marcelle OLSON ADOB:1965 (59 yo F)Acc No.[id number]:06/09/2025 Progress Note Patient: Marcelle HINTON Provider: Navid Vance MD :1965 A ge:59 Y S ex:Female Date:06/09/2025 Address:[address] [place] [address] [facility] Subjective: * Chief Complaints: * 1 . FASTING LIPID , LIVER PANEL. * Medical History: Objective: * Vitals: Assessment: * Assessment: 1. H ypercholesterolemia - E78.00 (Primary) 2 . A nnual physical exam - Z00.00 3 . E ncounter for administration of vaccine - Z23 Plan: * Treatment: 2. A nnual physical exam L AB: Liver Panel L AB: Lipid Panel * Immunizations: Fluarix Quadrivalent - 150 : 0.5 mL (Dose No:1) (Route: Intramuscular) given by Katherine Flores , Office Staff on Left Deltoid * Procedure Codes: 3 6415 VENIPUNCT, ROUTINE*, 39289 FLU VACCINE NO PRESERV 3 & >, 49354 IMMUNIZATION ADMIN * * The named appointment provid er may or may not be the originator of this progress note, and it is not deemed complete until electronically signed by the appointment provider. Sign off status: Pending * Provider: Navid Vance MD Date: 06/09/2025 Generated for Irma ocampo/Becca/eTransmitting on: 06/09/2025 12:46 PM EDT
--- OUTSIDE RECORDS SUMMARY | 2025-06-09 12:46 | XMS_ITS | Clinical Summary ---
Author Organization [facility] [address] [facility] Address [address] [place] [address] Phone Care Team Providers Care State Superintendent Of [employer] Name Role Phone Nishant Vance MD Primary Care Provider [phone] Medications hydrocortisone (ANUSOL-HC) 2.5 % rectal creamIndications :Grade II hemorrhoids Insert into the rectum 2 (two) times a day if needed for hemorrhoids (for rectal discomfort) for up to 14 days. Apply externally to rectum as needed for rectal discomfort 30 g 1 Active Social History Tobacco Use Types Packs/Day Years Used Date Smoking Tobacco: Never Assessed Comments Unknown Sex and Gender Information Value Date Recorded Sex Assigned at Not on file Legal Sex Female 8:57 PM EST Gender Identity Not on file Sexual Orientation Not on file Last Filed Vital Signs Vital Sign Reading Time Taken Comments Blood Pressure - - Pulse - - Temperature - - Respiratory Rate - - Oxygen Saturation - - Inhaled Oxygen Concentration - - Weight 58.5 kg (129 lb) 03/06/2025 9:26 AM EDT Height 165.1 cm (5' 5 ) 03/06/2025 9:26 AM EDT Body Mass Index 21.47 03/06/2025 9:26 AM EDT Plan of Treatment Health Maintenance Due Date Last Done Comments Breast Cancer Screening 1965 DTaP,Tdap,and Td Vaccines (1 - Tdap) 1985 Hepatitis B Vaccines (1 of 3 - 19+ 3-dose series) 1985 Cervical Cancer Screening: Pap Smear 12/06/1987 Pneumococcal Vaccine: 50+ Years (1 of 1 - PCV) 2016 Zoster Vaccines (1 of 2) 2016 HIV Screening 10/10/2023 Hepatitis C Screening 10/10/2023 Osteoporosis Screening (Bone Density Screening) 10/10/2023 Social Influencers of Health Screening 10/10/2023 Depression Screening 09/11/2024 COVID-19 Vaccine ( season) 2025 06/13/2022, 07/29/2021, 07/12/2021, Additional history exists Influenza Vaccine (#1) 2025 , 07/16/2021, 06/29/2020, Additional history exists Colorectal Cancer Screening: Colonoscopy 01/23/2035 01/23/2025 HIB Vaccines Aged Out No longer eligi ble based on patient's age to complete this topic HPV Vaccines Aged Out No longer eligi ble based on patient's age to complete this topic Hepatitis A Vaccines Aged Out No long er eligible based on patient's age to complete this topic IPV Vaccines Aged Out No longer eligi ble based on patient's age to complete this topic MMR Vaccines Aged Out No longer eligi ble based on patient's age to complete this topic Meningococcal ACWY Vaccine Aged Out N o longer eligible based on patient's age to complete this topic Meningococcal B Vaccine Aged Out No l onger eligible based on patient's age to complete this topic RSV Immunization Patients Under 20 months Aged Out No longer eligible based on patient's age to complete this topic Varicella Vaccines Aged Out No longer eligible based on patient's age to complete this topic Procedures Procedure Name Priority Date/Time Associated Diagnosis Comments COLONOSCOPY Routine 01/23/2025 2:03 PM EDT from Last 3 Months or Most Recently Relevant to Health Maintenance Results * COLONOSCOPY (01/23/2025 2:03 PM EDT) Anatomical Region Laterality Modality Endoscopy us Historical Provider GI~PROCEDURE ORDERABLES F inal Result from Last 3 Months or Most Recently Relevant to Health Maintenance Insurance [facility] Care Teams State Superintendent Of Schools Relationship Specialty Start Date End Date Nishant Vance MD [address] [facility] [address] PCP - General Internal Medicine 01/13/25
--- OUTSIDE RECORDS SUMMARY | 2025-06-09 12:46 | XMS_ITS | Patient Health Record ---
Author Organization [facility] [place] Address [address] [facility] [place] [address] Care Team Providers Care Feather Maker Name Role Phone Rajiv SANCHEZ, Nishant Primary Care Provider Zoe Flanagan Unavailable [phone] Reason For Referral No Information Medications Medication SIG (Take, Route, Fr equency, Duration) Notes Start Date End Date Status Imitrex 100 MG 1 tablet at least 2 hours between doses as needed Orally Twice a day Active Naproxen 550 Active Social History Tobacco Use: Social History Observation Description Date Details (start date - stop date) Never Smoker NA - NA Tobacco Use/Smoking Question Answer Notes Are you a: nonsmoker Alcohol Screen Question Answer Notes Did you have a drink containing alcohol in the p ast year? Yes Points 0 Interpretation Negative Tobacco use other than smoking: Question Answer Notes Are you an other tobacco user? No Plan Of Treatment No Information Insurance Providers Payer Name Payer Address Payer Phone Subscriber Number Group Number Insured Name Patient Relationship to Insured Coverage Start Date Coverage End Date [facility] [address] [facility] [id number] Cyrus Jeffrey Spouse - patient is the spouse of the insured Medical (General) History Medical History History ICD Code Diverticulitis Headaches/Migraines Warts Chicken pox Shingles Surgical History Surgery Date(Month/Year) partial hysterectomy 02/2012 tubal ligation 02/2000
[2025-06-09 12:47] LABS: Alanine Aminotransferase 22 U/L (0-31); Albumin Level 4.3 g/dL (3.5-5.0); Alkaline Phosphatase 63 U/L (39-117); Aspartate Amino Transferase 37 U/L (5-31); Cholesterol 166 mg/dL (<200); HDL Cholesterol 60 mg/dL (>40); Total Protein 6.7 g/dL (6.5-8.0); Triglycerides 75 mg/dL (<150)
--- OUTSIDE RECORDS SUMMARY | 2025-06-09 12:47 | XMS_ITS | Patient Health Record ---
Author Organization Nishant Vance MD Address [address] [place] [phone] Care Team Providers Care Clip Coater Name Role Phone Rajiv Nishant Primary Care Provider Allergies No Known Allergies Results Component Value Reference Range Notes Complete Blood Count Auto Di ff Reviewed date:02/28/2025 12:08:26 PM Interpretation: Performing Lab:[facility], [address] [place] [phone] Notes/Report: White Blood Count 5.7 4.8-10.8 X10*3/uL [...] NRBC Abs Auto 0.000 0.0-0.012 X10*3/uL Comprehensive [place]. Panel Fa st Reviewed date:03/02/2025 07:48:52 PM Interpretation: Performing Lab:[facility], [address] [place] [phone] Notes/Report: Sodium 139 135-145 mmol/L Potassium 4.3 [...] Panel Reviewed date:02/28/2025 12:08:02 PM Interpretation: Performing Lab:[facility], [address] [place] [phone] Notes/Report: Triglycerides 111 <150 mg/dL Desirable Triglyceride: [...] t Reviewed date:02/28/2025 12:09:43 PM Interpretation: Performing Lab:[facility], [address] [place] [phone] Notes/Report: Urine, Clean Catch Color Urine Yellow Appearance Urine Clear PH 5.5 5.0-9.0 Glucose Urine UA Negative Negative mg/dL Urine Blood Negative Negative Specific [place] - Urine 1.015 1.005-1.025 Urine Protein Negative Neg-Trace mg/dL Urine Ketones Negative Negative mg/dL Nitrite Urine Negative Negative Leukocyte Esterase Urine Negative Negative RBC Urine 0-2 0-2 /HPF WBC Urine 0-5 0-5 /HPF Squamous Epithelial Cell Urine 3-5 0-2 /HPF Bacteria Urine None Seen None Seen Hyaline Casts Urine 0-2 0-2 /LPF Hold Gold Reviewed date:02/28/2025 12:07:42 PM Interpretation: Performing Lab:[facility], [address] [place] [phone] Notes/Report: Hold Gold See Note Specimen held untested for 24 hours; Call to request Chemistry testing. Reason For Referral Reason thyroid nodule Her endo provider has retired. was told to get set up with this provider She will work on getting her records from Dr. Culp Diagnosis 1 Thyroid nodule (E04. 1) Referral Organization Nishant Vance MD Referring Provider First Name Nishant Referring Provider Last Name Rajiv Referring Provider Speciality Internal M edicine Referred Provider Goevanna Coppola Referred Provider Specialty Endocrinolog y General Notes Chiquis Trevino 0 10/21/2024 11:21:26 AM >new referral request faxed. Patient is booking her own appt Referral Priority Routine Medications Medication SIG (Take, Route, Frequency, Duration) Notes Start Date End Date Status Valtrex 1 GM 1 tablet Orally 3 ti mes a day for 7 days 02/01/2019 Not-Taking Atorvastatin Calcium 20 MG 1 tablet Orally Once a day for 30 days 03/07/2025 Active Finacea 15 % 1 application Externally Twice [...] AT BEDTIME NEEDED for 30 12/02/2022 Not-Taking Immunizations Vaccine Route Administration Date Status Comme nts Flu Vaccine IM Intramuscular 07/14/2011 Administered TDaP IM Intramuscular 07/14/2011 Administered Flu Vaccine IM Intramuscular 07/02/2012 Administered Flu Vaccine IM Intramuscular 08/16/2013 Administered Fluarix Quadrivalent IM Intramuscular 05/30/2014 Administe red zFluzone Quadrivalent IM Intramuscular 07/24/2015 Administ ered Fluarix Quadrivalent IM Intramuscular 10/03/2016 Administe red Fluarix Quadrivalent IM Intramuscular 10/02/2017 Administe red Fluarix Quadrivalent IM Intramuscular 08/21/2018 Administe red Fluarix Quadrivalent IM Intramuscular 08/26/2019 Administe red Covid Vaccine Unknown 12/13/2020 Administered J&J Fluarix Quadrivalent IM Intramuscular 07/16/2021 Administe red SARS-COV-2 Pfizer Unknown 07/29/2021 Administered Walhenri downey's Fluarix Quadrivalent - 150 IM Intramuscular 06/09/2025 Administered Tetanus Unknown 07/14/2011 Pending Social History Tobacco Use: Social History Observation [...] Never (0 point) Points 1 Interpretation Negative Problems Problem Type SNOMED Code ICD Code Onset Dates Problem Status W/U Status Risk Notes Problem 075886762 Thyroid nodule (E04.1) Active confirmed Problem 05025341 Lymphocytosis (D72.820) Active confirmed Problem 10090129 Anxiety (F41.9) Active confirmed Problem 977743075 Rosacea (L71.9) Active confirmed Problem 644089943 Migraine without aura and without status migrainosus, not intractable (G43.009) Active confirmed Problem Hypercholesterolemia (54338790) Hypercholesterolemia (E78.00) Active confirmed Problem 65116507 Osteoporosis wit hout current pathological fracture, unspecified osteoporosis type (M81.0) Active confirmed Problem 018087981 Vaginal prolapse (N81.10) Active confirmed Vital Signs Blood pressure diastolic 60 mm Hg 03/07/2025 dolores ght is down 2 pounds since 02-16-24 Height 65 in 03/07/2025 weight is down 2 pounds since 02-16-24 Blood pressure systolic 92 mm Hg 03/07/2025 weig ht is down 2 pounds since 02-16-24 Weight 131 lbs 03/07/2025 weight is down 2 pounds since 02-16-24 BMI 21.8 kg/m2 03/07/2025 weight is down 2 pounds since 02-16-24 Encounters Encounter Location Date Provider Diagnosis Nishant Vance MD [address] [place], [place] [phone] 02/28/2025 Nishant Vance Blood tests for rout ine general physical examination Z00.00 ; Hypercholesterolemia E78.00 and Lymphocytosis D72.820 Nishant Vance MD [address] [place] [phone] 03/07/2025 Nishant Vance Annual physical exam Z00.00 ; Hypercholesterolemia E78.00 and Osteoporosis without current pathological fracture, unspecified osteoporosis type M81.0 Nishant Vance MD [address] [place] [phone] 06/09/2025 Nishant Vance Hypercholesterolemia E78.00 ; Annual physical exam Z00.00 and Encounter for administration of vaccine Z23 Nishant Vance MD [address] [place] [phone] 10/21/2024 Nishant Vance MD [address] [place] [phone] 10/21/2024 Nishant Vance Assessments Encounter Date Diagnosis (ICD Code) Assessment Notes Treatment Notes Treatment Clinical Notes Section Notes 02/28/2025 [address] tests [address] rout ine general physical examination (ICD-10 - Z00.00) 03/07/2025 Annual physical exam (ICD-10 - Z00.00) 06/09/2025 Hypercholesterolemia (ICD-10 - E78.00) 06/09/2025 Annual physical exam (ICD-10 - Z00.00) 02/28/2025 Hypercholesterolemia (ICD-10 - E78.00) 03/07/2025 Hypercholesterolemia (ICD-10 - E78.00) 06/09/2025 Encounter for administration of vaccine (ICD-10 - Z23) 02/28/2025 Lymphocytosis (ICD-1 0 - D72.820) 03/07/2025 Osteoporosis without current pathological fracture, unspecified osteoporosis type (ICD-10 - M81.0) is going to see an director speech and hearing Plan Of Treatment Pending Test Test Name Order Date Electrocardiogram (EKG) 12/24/2015 Electrocardiogram (EKG) 01/27/2017 Electrocardiogram (EKG) 02/01/2019 MRI BRAIN NO CONTRAST 12/23/2022 MRI BRAIN W&WO CONTRAST 2022 US thyroid 03/17/2022 Liver Panel 06/09/2025 Lipid Panel 06/09/2025 Next Appt Details Provider Name:Nishant Schmitt ier, 03/05/2026 07:30:00 AM, [address], [address], [place], [place], [phone], Provider Name:Nishantscottie velascor, 03/12/2026 08:30:00 AM, [address], [address], [place], [place], [phone], Insurance Providers Payer Name Payer Address Payer Phone Subscriber Number Group Number Insured Name Patient Relationship to Insured Coverage Start Date Coverage End Date [facility] [address] [place], [place] [id number] Marcelle Olson Self - patient is the insured Medical (General) History Medical History History ICD Code Had partial hysterectomy - left cervix. and ovaries Colonoscopy 06/26/[address] Shruthi Ramos er @ [facility] - repeat 5 years Abnormal mammogram of right breast Surgical History Surgery Date(Month/Year) laparoscopic supracervical hysterectomy 02/2012
--- OUTSIDE RECORDS SUMMARY | 2025-06-09 12:47 | XMS_ITS | Clinical Summary ---
Author Organization [facility] Address [address] [place] [phone] Phone Care Team Providers Care Vet Tech Name Role Phone Nishant Vance MD Primary Care Provider Allergies No known active allergies Medications atorvastatin (LIPITOR) 20 MG tablet Take 1 tablet by mouth every morning. 5 Active SUMAtriptan (IMITREX) 100 MG tablet as needed. 5 Active ESTRACE 0.01 % (0.1 mg/gram) vaginal cream See Instructions, 1 gram Vaginally at bedtime twice per week, # 42 Gm, 4 Refills, Maintenance, 01/20/25 3:59:00 PM EDT, [id number], Partial fill upon patient request if the prescription is for a schedule II opioid drug., 165.1, cm, 01/20/25 15:14:00 EDT, Height, 58.08, kg, 12/13/23 10:14:00 EDT, Dry Weight 5 Active hydrocortisone (ANUSOL-HC) 2.5 % rectal cream as needed. Acti ve ANUCORT-HC 25 mg suppository UNWRAP AND INSERT 1 SUPPOSITORY RECTALLY TWICE DAILY 5 Active magnesium oxide 200 mg magnesium Tab Take by mouth daily. Changing to every other night Active cholecalciferol (VITAMIN D3) 400 unit tablet Take 400 Units by mouth daily. Active Medication-Free Text AlgaeCal Plus Multi Vit has Vit C, Vit D, Calcium, Magnesium, Cherry Log, Vit K Active LYLLANA 0.025 mg/[address] 1 patch onto the skin 2 (two) times a week. 24 patch 2 Active Active Problems Problem Noted Date Diagnosed Date Age-related osteoporosis wit hout current pathological fracture 03/11/2025 Assessment & Plan (03/11/2025 5:08 PM EDT): Osteoporosis diagnosed with T score -3.1 in the left femoral neck and low Z score -2.0. No fracture history or significant risk factors.Calcium and vitamin D intake may be insufficient. No significant absorption issues identified. Discussed optimizing calcium and vitamin D. Investigating secondary causes. Estradiol patch discussed as effective treatment. - Continue estradiol patch. Rx filled until patient is able to see a new SENIOR PROGRAM PLANNER. - Order fasting blood work for secondary causes: thyroid function, parathyroid hormone, calcium level, CTX. - Order urine calcium creatinine ratio test. - Schedule follow-up bone density test September 2025. - Send bone health and osteoporosis resources. - Optimize dietary calcium to 1200 mg daily. - Continue vitamin D supplementation. - Encourage weight-bearing and resistance exercises 2-3 times weekly. - Recheck vitamin D levels in blood work. Vitamin D deficiency, unspecified 03/11/2025 Assessment & Plan (03/11/2025 5:09 PM EDT): History of low vitamin D. Level normalized, last tested in 05/2024 and was 41.4. Patient is getting about 2000 IU D3 from her algae Sloan and occasional 400 IU vitamin D3 supplement. -Continue current supplement for now -Repeat level and adjust as needed Multiple thyroid nodules 03/11/2025 Assessment & Plan (03/11/2025 5:10 PM EDT): History of incidentally found thyroid nodules about 10 years ago with reported benign FNA and stable ultrasound thereafter. Patient recalls last ultrasound about 5 years ago and was not recommended further follow-up by previous Endo at [facility]. Records are not available. No palpable thyroid abnormality. Patient is clinically euthyroid. Last TSH normal 2.35 in 10/2024. -Patient will bring her records to next visit Encounters Date Type Department Care Team Description 03/11/2025 10:00 AM EDT Office Visit [facility] [address] [place] [address] Sharla Glez MD Age-related osteoporosis without current pathological fracture (Primary Dx); Vitamin D deficiency, unspecified; Multiple thyroid nodules; Family history of thyroid cancer from Last 3 Months Social History Tobacco Use Types Packs/Day Years Used Date Smoking Tobacco: Never Passive Smoke Exposure: Never Smokeless Tobacco: Never Tobacco Cessation:Counseling Given: Not Answered Alcohol Use Standard Drinks/Week Comments Yes 2 (1 standard drink = 0.6 oz pur e alcohol) Education Answer Date Recorded Are you interested in more education? Not on julian e 10/21/2024 Are you concerned about learning? Not on file 10/21/2024 No 10/21/2024 No 10/21/2024 Digital Access Answer Date Recorded No 10/21/2024 No 10/21/2024 Reliable internet access at home? Not on file 10/21/2024 Device with a working camera? Not on file Comments Unknown Sex and Gender Information Value Date Recorded Sex Assigned at Not on file Legal Sex Female 10:27 AM EST Gender Identity Not on file Sexual Orientation Not on file Last Filed Vital Signs Vital Sign Reading Time Taken Comments Blood Pressure 82/60 03/11/2025 10:03 AM EDT Pulse 69 03/11/2025 10:03 AM EDT Temperature - - Respiratory Rate - - Oxygen Saturation 99% 03/11/2025 10:03 AM EDT Inhaled Oxygen Concentration - - Weight 59.1 kg (130 lb 3.2 oz) 03/11/2025 10:03 AM EDT Height 165.1 cm (5' 5 ) 03/11/2025 10:03 AM EDT Body Mass Index 21.67 03/11/2025 10:03 AM EDT Plan of Treatment Upcoming Encounters Date Type Department Care Team (Late st Contact Info) Description 10/08/2025 8:40 AM EST Office Visit [facility] [address] [place] [address] [place] [address] Sharla Glez MD [address] [place] [id number] Health Maintenance Due Date Last Done Comments Adult Td,Tdap Booster 1966 LIPID PANEL 1966 DEPRESSION SCREENING 1978 HEPATITIS C SCREENING 1984 HIV ONE-TIME SCREENING (18-6 5 YEARS) 1984 PAP SMEAR 12/06/1987 MAMMOGRAM 2006 COLOGUARD 12/06/2011 COLONOSCOPY 12/06/2011 COLORECTAL CANCER SCREENING 12/06/2011 FIT TEST 12/06/2011 FOBT 12/06/2011 SIGMOIDOSCOPY 12/06/2011 VIRTUAL COLONOSCOPY 12/06/2011 PNEUMOCOCCAL VACCINES (50+ y ears) (1 of 1 - PCV) 2016 ZOSTER VACCINES (1 of 2) 2016 COVID-19 VACCINE (1 - 2023-2 5 season) 2025 SMOKING STATUS SCREENING (On ce After 26 Yrs) Completed 03/11/2025 INFLUENZA VACCINE Completed 06/09/2025 HEPATITIS A VACCINES Aged Out No long er eligible based on patient's age to complete this topic HIB VACCINES Aged Out No longer eligi ble based on patient's age to complete this topic MENINGOCOCCAL VACCINES (ACWY) Aged Out No longer eligible based on patient's age to complete this topic MENINGOCOCCAL VACCINES (B) Aged Out N o longer eligible based on patient's age to complete this topic Medical Devices Not on file Procedures Procedure Name Priority Date/Time Associated Diagnosis Comments CBC Routine 04/25/2025 11:18 AM EDT Age-related osteoporosis without current pathological fracture CREATININE (RANDOM URINE) Routine 04/25/2025 11:18 AM EDT Age-related osteoporosis without current pathological fracture CALCIUM, RANDOM URINE Routine 04/25/2025 11:18 AM EDT Age-related osteoporosis without current pathological fracture PHOSPHORUS Routine 04/25/2025 11:18 AM EDT Age-related osteoporosis without current pathological fracture PARATHYROID HORMONE (PTH) Routine 04/25/2025 11:18 AM EDT Age-related osteoporosis without current pathological fracture TSH WITH REFLEX Routine 04/25/2025 11:18 AM EDT Multiple thyroid nodules 25-OH VITAMIN D Routine 04/25/2025 11:18 AM EDT Vitamin D deficiency, unspecified Age-related osteoporosis without current pathological fracture COMPREHENSIVE METABOLIC PANEL Routine 04/25/2025 11:17 AM EDT Age-related osteoporosis without current pathological fracture BD DXA MONITORING Routine 03/11/2025 10: 59 AM EDT Age-related osteoporosis without current pathological fracture from Last 3 Months Results * CBC (04/25/2025 11:18 AM EDT) Blood Sharla Glez MD LAB BLOOD ORDERABLES Final Res ult Performing Organization Address [facility] de Phone Number EXTERNAL NON-INTERFACED REF LAB * Creatinine, random urine (04/25/2025 11:18 AM EDT) Urine (Urine) Sharla Glez MD URINE ORDERABLES Final Result Performing Organization Address [facility] Phone Number EXTERNAL NON-INTERFACED REF LAB * Calcium, Random Urine (04/25/2025 11:18 AM EDT) Urine (Urine) Sharla Glez MD URINE ORDERABLES Final Result Performing Organization Address [facility] de Phone Number EXTERNAL NON-INTERFACED REF LAB * Phosphorus (04/25/2025 11:18 AM EDT) Blood Sharla Glez MD LAB BLOOD ORDERABLES Final Res ult Performing Organization Address [facility] de Phone Number EXTERNAL NON-INTERFACED REF LAB * Parathyroid hormone (PTH) (04/25/2025 11:18 AM EDT) Blood Sharla Glez MD LAB BLOOD ORDERABLES Final Res ult Performing Organization Address [facility] de Phone Number EXTERNAL NON-INTERFACED REF LAB * TSH with reflex (04/25/2025 11:18 AM EDT) Blood Sharla Glez MD LAB BLOOD ORDERABLES Final Res ult Performing Organization Address City/[facility]/ZIP Co de Phone Number EXTERNAL NON-INTERFACED REF LAB * 25-OH vitamin D (04/25/2025 11:18 AM EDT) Blood us Sharla Glez MD LAB BLOOD ORDERABLES Final Res ult Performing Organization Address City/[facility]/ZIP Co de Phone Number EXTERNAL NON-INTERFACED REF LAB * Comprehensive metabolic panel (04/25/2025 11:17 AM EDT) Blood us Sharla Glez MD LAB BLOOD ORDERABLES Final Res ult Performing Organization Address [facility] Co de Phone Number EXTERNAL NON-INTERFACED REF LAB from Last [address] [address] [employer] [address] [address] [employer] [facility] [place] [address] [place] [address] [place] [address] [place] [address] [place] [address] DIRECT [facility] [employer] DIRECT Care Teams Vet Tech Relationship Specialty Start Date End Date Nishant Vance MD [address] [place] [address] Dr MARIANO Lindsay [place] [id number] PCP - General Internal Medicine 10/21/24 Additional Source Comments The information contained in this document represents components of the legal health record. It is not the complete legal health record.[facility]
== END 2025-06-09 11:16 | disposition home or self-care (01) ==
LOC: HO.LNP 11:15
PROVIDERS: Visit Provider Internal Medicine
DX: Z00.00 Encounter for general adult medical examination without abnormal findings (principal); E78.00 Pure hypercholesterolemia, unspecified
CPT/HCPCS: 80061; 80076